=== PATIENT | male | born 1985 | race African-American/Black ===

== ENCOUNTER 2021-09-01 13:26 | Emergency (ER) | payer OTHER ==
[~2021-09-01] VITALS: Ht 165.1 cm; Wt 70.3 kg
[2021-09-01 20:56] LABS: INFLUENZA A ANTIGEN Negative (Negative); INFLUENZA B ANTIGEN Negative (Negative)
[2021-09-01 20:57] LABS: ABSOLUTE BASOPHILS 0.1 thou/uL (0.0-0.2); ABSOLUTE LYMPHOCYTES 1.7 thou/uL (0.8-5.3); ABSOLUTE MONOCYTES 0.5 thou/uL (0.0-1.2); ABSOLUTE NEUTROPHILS 2.5 thou/uL (1.6-8.1); BASOPHILS 1.3 %; EOSINOPHILS 0.7 %; HEMATOCRIT 45.5 % (42.0-52.0); HEMOGLOBIN 15.2 gm/dL (14.0-18.0); MCH 30.2 pg (26.0-34.0); MCHC 33.4 g/dL (28.0-37.0); MCV 90.3 fL (80.0-100.0); MONOCYTES 10.7 %; MPV 8.4 fl. (7.2-11.1); NUCLEATED RBCS 0 /100WBC; PLATELET COUNT* 289 thou/uL (150-400); POLYS 51.3 %; RBC 5.04 mil/uL (4.50-6.00); RDW-CV 13.2 % (10.5-14.5); WBC 4.8 thou/uL (4.0-11.0)
[2021-09-01 21:01] LABS: CALCIUM 8.9 mg/dL (8.5-10.1); CREATININE 1.1 mg/dL (0.6-1.3)
[2021-09-01 21:11] LABS: ALBUMIN 4.1 g/dL (3.4-5.0); MAGNESIUM 2.3 mg/dL (1.8-2.4); TOTAL BILIRUBIN 0.3 mg/dL (<0.1-1.0); TOTAL PROTEIN 7.7 g/dL (6.4-8.2)
[2021-09-01 21:18] LABS: URINE BILIRUBIN NEGATIVE (Negative); URINE BLOOD NEGATIVE (Negative); URINE CLARITY CLEAR; URINE COLOR YELLOW; URINE GLUCOSE-RANDOM NEGATIVE (Negative); URINE KETONES NEGATIVE (Negative); URINE LEUKOCYTES-REFLEX NEGATIVE (Negative); URINE NITRITE-REFLEX NEGATIVE (Negative); URINE PROTEIN NEGATIVE (Negative); URINE SPECIFIC GRAVITY 1.015 (1.005-1.030); URINE UROBILINOGEN 0.2 E.U./dl (0.2-1.0)
[2021-09-01 21:25] LABS: AMP/METHAMP Negative (Negative); BARBITURATES Negative (Negative); BENZODIAZEPINES Negative (Negative); COCAINE Negative (Negative); METHADONE Negative (Negative); OPIATES Negative (Negative); PCP Negative (Negative); THC Negative (Negative)
[2021-09-01] MEDS ORDERED: FLEXERIL PO (21:46)
[2021-09-01] MEDS ORDERED: TESSALON PERLE100 MG PO (21:46)
[2021-09-01] MEDS ORDERED: MEDROLDOSEPACK PO (21:46)
[2021-09-01 21:55] VITALS: BP 121/69
--- NOTE | 2021-09-02 09:28 | EKG ---
[place] [address] ELECTROCARDIOGRAM REPORT Name: REMY AQUINO Room: [facility]#: [id number] Admission: 09/01/21 Attend Phys: Discharge: 09/01/21 Date of : 87 Date of Service: 09/01/210 Report #: [id number] THIS REPORT FOR: //name// [facility] ED Test Date: 2021-09-01 Test Time: 13:30:20 Pat Name: REMY AQUINO Department: Room: Gender: Network Systems Analyst: : 1985 Requested By: Mendez Izquierdo Order Number: [id number] MD: Cristobal Young Measurements Intervals [place] Rate: 97 P: 57 [place]: 122 QRS: 54 QRSD: 119 T: 50 QT: 357 QTc: 454 Interpretive Statements Sinus rhythm Nonspecific intraventricular conduction delay No previous ECG available for comparison Electronically Signed On 09-02-2021 9:28:32 [employer]ER by Cristobal Young [email or web address] <ELECTRONICALLY SIGNED> By: Cristobal Young MD, [facility] 09/02/21 0928 1330 1330 Cristobal Young MD, FACC /EPI
--- NOTE | 2021-09-02 09:31 | EKG ---
[place] [address] ELECTROCARDIOGRAM REPORT Name: REMY AQUINO Room: [facility]#: [id number] Admission: 09/01/21 Attend Phys: Discharge: 09/01/21 Date of : 87 Date of Service: 09/01/212046 Report #: [id number] THIS REPORT FOR: //name// [facility] ED Test Date: 2021-09-01 Test Time: 20:47:32 Pat Name: REMY AQUINO Department: Room: Gender: [place]: [place] : 1985 Requested By: Josselyn Schultz Order Number: [id number] MD: Cristobal Young Measurements Intervals [place] Rate: 101 P: 48 [place]: 183 QRS: 45 QRSD: 81 T: 38 QT: 362 QTc: 470 Interpretive Statements Sinus tachycardia Probable left atrial enlargement Borderline prolonged QT interval Compared to ECG 09/01/2021 13:30:20 Sinus rate has increased Intraventricular conduction delay no longer present Electronically Signed On 09-02-2021 9:31:14 CLINICAL ALLERGIST by Cristobal Young [email or web address] <ELECTRONICALLY SIGNED> By: Cristobal Young MD, [facility] 09/02/21 0931 46 46 Cristobal Young MD, [facility] /EPI
== END 2021-09-01 21:55 | disposition home or self-care (01) ==
LOC: M.ERS 13:26
PROVIDERS: Nurse Practitioner Family
DX: J20.9 Acute bronchitis, unspecified (principal); Z20.822 Contact with and (suspected) exposure to COVID-19; M94.0 Chondrocostal junction syndrome [Tietze]; E86.0 Dehydration; H11.31 Conjunctival hemorrhage, right eye; Z88.8 Allergy status to other drugs, medicaments and biological substances; Z87.891 Personal history of nicotine dependence